=== PATIENT | male | born 1975 | race Two or more races ===

== ENCOUNTER 2017-11-17 01:14 | Emergency (ER) | payer BC ==
[2017-11-17] MEDS ORDERED: NORMAL SALINE 1000 ML 1,000 ML IV ONE (01:28)
[2017-11-17] MEDS ORDERED: FENTANYL CITRATE INJ/PF 100 MCG/2 ML AMPUL IV ONE (01:28)
--- NOTE | 2017-11-17 01:29 | ER Document Report ---
ED GI/ - General Stated Complaint: LEFT FLANK PAIN Time Seen by Provider: 11/17/17 01:21 Notes: Patient is a 42-year-old male who comes emergency department by EMS for chief complaint of his severe pain in his left mid to lower abdomen radiating around to his left flank. He reports nausea but denies vomiting. Denies fever. He states over the past few days he is having frequency and urgency with urination although denies dysuria. He denies history of kidney stone. He denies any daily medications. Only past medical history reported is appendectomy. Given Toradol, fentanyl, and Zofran by EMS - Related Data Allergies/Adverse Reactions: No Known Allergies Allergy (Unverified 11/17/17 02:59) Past Medical History - General Information source: Patient - Social History Smoking Status: Never Smoker Frequency of alcohol use: None Drug Abuse: None Lives with: Family Family History: Reviewed & Not Pertinent - Medical History Medical History: Negative Surgical Hx: Negative - Immunizations Immunizations up to date: Yes Hx Diphtheria, Pertussis, Tetanus Vaccination: Yes Review of Systems - Review of Systems Constitutional: No symptoms reported EENT: No symptoms reported Cardiovascular: No symptoms reported Respiratory: No symptoms reported Gastrointestinal: See HPI Genitourinary: See HPI Male Genitourinary: No symptoms reported Musculoskeletal: No symptoms reported Skin: No symptoms reported Hematologic/Lymphatic: No symptoms reported Neurological/Psychological: No symptoms reported Physical Exam - Vital signs Vitals: Temp Pulse Resp BP Pulse Ox 98.5 F 73 18 147/80 H 97 11/17/17 01:18 11/17/17 01:18 11/17/17 01:18 11/17/17 01:18 11/17/17 01:18 Interpretation: Normal - General General appearance: Alert, Anxious In distress: Mild - HEENT Head: Normocephalic, Atraumatic Eyes: Normal Conjunctiva: Normal Extraocular movements intact: Yes Eyelashes: Normal Pupils: PERRL Nasal: Normal Mouth/Lips: Normal Mucous membranes: Normal Pharynx: Normal Neck: Normal - Respiratory Respiratory status: No respiratory distress Chest status: Nontender Breath sounds: Normal. No: Decreased air movement, Wheezing Chest palpation: Normal - Cardiovascular Rhythm: Regular. No: Tachycardia Heart sounds: Normal auscultation, S1 appreciated, S2 appreciated Murmur: No - Abdominal Inspection: Normal Distension: No distension Bowel sounds: Normal Tenderness: Tender - tender in LLQ, otherwise benign abdomen; no guarding or rigidity Organomegaly: No organomegaly - Back Back: Normal, Nontender. No: Tender, CVA tenderness - Extremities General upper extremity: Normal inspection, Nontender, Normal color, Normal ROM , Normal temperature General lower extremity: Normal inspection, Nontender, Normal color, Normal ROM , Normal temperature, Normal weight bearing. No: Teofilo's sign - Neurological Neuro grossly intact: Yes Cognition: Normal Orientation: AAOx4 [place] Coma Scale Eye Opening: Spontaneous [place] Coma Scale Verbal: Oriented Jerad Coma Scale Motor: Obeys Commands Jerad Coma Scale Total: 15 Speech: Normal Motor strength normal: LUE, RUE, LLE, RLE Sensory: Normal - Psychological Associated symptoms: Normal affect, Normal mood - Skin Skin Temperature: Warm Skin Moisture: Dry Skin Color: Normal Course - Re-evaluation Re-evalutation: Patient initially uncomfortable, this resolved after medications. Discussed with patient and family, they do want a CAT scan to be performed for further evaluation. CAT scan showing stone that is about to pass. Patient likely passed stone while he was in the department. CBC, chemistry, urinalysis unremarkable except for some hematuria. No additional stones or concerning a normality's on workup. Discussed with patient, he admits that he drinks a lot of energy drinks, could be a source of stone formation, discussed recommendations. Discussed follow-up and return precautions, patient states satisfaction and agreement. - Vital Signs Vital signs: Temp Pulse Resp BP Pulse Ox 97.6 F 62 16 131/67 H 95 11/17/17 04:35 11/17/17 04:35 11/17/17 04:35 11/17/17 04:35 11/17/17 04:35 - Laboratory Result Diagrams: 11/17/17 01:40 11/17/17 01:40 Laboratory results interpreted by me: 11/17/17 02:27 Urine Blood LARGE H Discharge - Discharge Clinical Impression: Left flank pain, Left lower quadrant pain Condition: Stable Disposition: HOME, SELF-CARE Additional Instructions: Workup shows that you passed a kidney stone, no additional abnormalities are seen on your workup. Avoid substance containing oxalate, avoid the energy drinks. Drink plenty of fluids over the next few days as well. Take the pain medication given today if needed, take ibuprofen if needed additionally. Follow-up with primary care. Return for any concerning symptoms including fever, vomiting, severe pain, etc.
[2017-11-17 01:55] LABS: ABSOLUTE BASOPHILS # (AUTO) 0.1 10^3/uL (0.0-0.2); ABSOLUTE EOSINOPHILS # (AUTO) 0.4 10^3/uL (0.0-0.6); ABSOLUTE LYMPHOCYTES (AUTO) 2.9 10^3/uL (0.5-4.7); ABSOLUTE MONOCYTES (AUTO) 0.6 10^3/uL (0.1-1.4); ABSOLUTE NEUT (AUTO) 4.8 10^3/uL (1.7-8.2); BASOPHILS % (AUTO) 0.6 % (0-2); EOSINOPHILS % (AUTO) 4.1 % (0-6); HEMATOCRIT 39.2 % (37.9-51.0); HEMOGLOBIN 13.6 g/dL (13.5-17.0); LYMPHOCYTES % (AUTO) 32.9 % (13-45); MEAN CORPUSCULAR HEMOGLOBIN 29.6 pg (27.0-33.4); MEAN CORPUSCULAR HGB CONC 34.6 g/dL (32.0-36.0); MEAN CORPUSCULAR VOLUME 86 fl (80-97); MONOCYTES % (AUTO) 7.2 % (3-13); PLATELET COUNT 214 10^3/uL (150-450); RED BLOOD COUNT 4.58 10^6/uL (4.35-5.55); RED CELL DISTRIBUTION WIDTH 12.8 % (11.5-14.0); SEGMENTED NEUTROPHILS % (AUTO) 55.2 % (42-78); TOTAL CELLS COUNTED % (AUTO) 100 %; WHITE BLOOD COUNT 8.8 10^3/uL (4.0-10.5)
[2017-11-17 02:24] LABS: ANION GAP 7 (5-19); BLOOD UREA NITROGEN 13 mg/dL (7-20); CALCIUM 9.6 mg/dL (8.4-10.2); CARBON DIOXIDE 26 mmol/L (22-30); CHLORIDE 107 mmol/L (98-107); GLUCOSE 107 mg/dL (75-110); POTASSIUM 3.9 mmol/L (3.6-5.0); SODIUM 140.4 mmol/L (137-145)
[2017-11-17 02:45] LABS: AMORPHOUS SEDIMENT,URINE TRACE /HPF; APPEARANCE,URINE SLIGHTLY-CLOUDY; BILIRUBIN,URINE NEGATIVE (NEGATIVE); COLOR,URINE YELLOW; GLUCOSE, URINE NEGATIVE (NEGATIVE); KETONES,URINE NEGATIVE (NEGATIVE); LEUKOCYTE ESTERASE,URINE NEGATIVE (NEGATIVE); NITRITE,URINE NEGATIVE (NEGATIVE); PROTEIN,URINE NEGATIVE (NEGATIVE); URINE SPECIFIC GRAVITY 1.008; UROBILINOGEN,URINE NEGATIVE mg/dL (<2.0)
--- NOTE | 2017-11-17 03:24 | RADIOLOGY REPORT (SQ) ---
EXAM DESCRIPTION: CT ABDOMEN AND PELVIS WITHOUT CONTRAST CLINICAL HISTORY: sharp left abd and flank pain COMPARISON: None Available. TECHNIQUE: CT of the abdomen and pelvis without IV contrast. FINDINGS: Abdomen: The liver has normal size and density. No calcified gallstones. The spleen, pancreas, and adrenal glands are unremarkable. 2 mm calcification at the base of the urinary bladder with moderate residual left hydroureter and hydronephrosis. Iliac atherosclerosis. IVC is unremarkable. No free intraperitoneal air. The stomach and duodenum have normal course. Pelvis: Prostate is not enlarged. Urinary bladder is otherwise unremarkable. No free pelvic fluid or lymphadenopathy. No dilated loops of large or small bowel. No evidence of appendicitis. The visualized lung bases are clear. No destructive bone lesions identified. No change of the spine. DLP: 475.29 mGy-cm IMPRESSION: 1. There is a 0.2 cm calculus at the base of the urinary bladder likely representing a recently passed calculus. Mild residual left hydroureter and hydronephrosis. This exam was performed according to our departmental dose-optimization program, which includes automated exposure control, adjustment of the mA and/or kV according to patient size and/or use of iterative reconstruction technique.
[2017-11-17] MEDS ORDERED: HYDROCODONE/ACETAMINOPHEN 5-325 MG (6 TAB/ER DISP) PO PRN (03:36)
[2017-11-17] MEDS ORDERED: ONDANSETRON ODT 4 MG TAB (6 TAB/ER DISP) PO PRN (03:36)
[2017-11-17 04:38] VITALS: BP 131/67
== END 2017-11-17 04:38 | disposition home or self-care (01) ==
LOC: ER 01:14
DX: R10.32 Left lower quadrant pain (principal); R10.9 Unspecified abdominal pain; R11.0 Nausea; R35.0 Frequency of micturition; R39.15 Urgency of urination
CPT/HCPCS: 99284; 96361; 96374; 36415; 85025; 80048; 81001; 76380; J3010; J7030

== ENCOUNTER → 2018-11-25 | Outpatient (CLI) | payer BC ==
--- NOTE | 2018-11-25 10:55 | RADIOLOGY REPORT (SQ) ---
EXAM DESCRIPTION: U/S ABDOMEN LIMITED W/O DOP COMPLETED DATE/TIME: 11/25/2018 9:11 am REASON FOR STUDY: ABN LFTS/FATTY LIVER R94.5 ABNORMAL RESULTS OF LIVER FUNCTION STUDIES COMPARISON: None. TECHNIQUE: Dynamic and static grayscale images acquired of the abdomen and recorded on PACS. Additio nal selected color Doppler and spectral images recorded. LIMITATIONS: None. FINDINGS: PANCREAS: No masses. Visualized pancreatic duct normal caliber. LIVER: Normal size Echo texture normal. No focal masses. LIVER VASCULATURE: Normal directional flow of the main portal vein and hepatic veins. GALLBLADDER: No stones. Normal wall thickness. No pericholecystic fluid. ULTRASOUND-DETECTED MARTINEZ'S SIGN: Negative. INTRAHEPATIC DUCTS AND COMMON DUCT: CBD and intrahepatic ducts normal caliber. No filling defects. INFERIOR VENA CAVA: Normal flow. AORTA: No aneurysm. RIGHT KIDNEY: Normal size. 8 mm cyst. No solid or suspicious masses. No hydronephrosis. No c alcifications. PERITONEAL AND RIGHT PLEURAL SPACE: No ascites or effusions. OTHER: No other significant findings. IMPRESSION: Small cyst right kidney. Otherwise normal. TECHNICAL DOCUMENTATION: JOB ID: [id number]- All Rights Reserved Reading location - IP/workstation name: [email or web address]
== END ==
LOC: RAD 08:24
PROVIDERS: ATTEND Physician Assistant
DX: K76.0 Fatty (change of) liver, not elsewhere classified (principal); R94.5 Abnormal results of liver function studies
CPT/HCPCS: 76705